=== PATIENT | male | born 1960 | race Caucasian/White ===

== ENCOUNTER 2022-03-30 16:09 | Emergency (ER) | payer OTHER ==
[2022-03-30 16:15] VITALS: BP 112/54; PULSE 79; RESP 18; TEMP 97.2; BMI 24.9
[2022-03-30] MEDS ORDERED: KETOROLAC TROMETHAMINE 30 MG/1 ML VIAL IM ONE (16:39)
[2022-03-30] MEDS ORDERED: KETOROLAC TROMETHAMINE 30 MG/1 ML VIAL ONE (16:42)
[2022-03-30] MEDS ORDERED: LIDOCAINE 5% TOPICAL PATCH TP ONE (17:33)
[2022-03-30] MEDS ORDERED: LIDOCAINE 5% TOPICAL PATCH ONE (17:33)
[2022-03-30] MEDS ORDERED: LIDOCAINE PATCH REMOVAL MC ONE (22:00)
== END 2022-03-30 17:36 | disposition home or self-care (01) ==
LOC: JERFT 16:09
PROC: 3E0233Z Introduction of Anti-inflammatory into Muscle, Percutaneous Approach (ICD-10-PCS; principal; 2022-03-30)
DX: S20.212A Contusion of left front wall of thorax, initial encounter (principal); R51.9 Headache, unspecified; Y04.8XXA Assault by other bodily force, initial encounter
CPT/HCPCS: 93005; 93010; 99284-25